=== PATIENT | male | born 1970 ===

== ENCOUNTER 2018-03-24 15:45 | Outpatient (CLI) | payer BC ==
--- NOTE | 2018-03-24 16:33 | RAD ---
RIGHT HIP TWO VIEW 03/24/18 HISTORY: Hip pain. COMPARISON: None. FINDINGS: Severe degenerative changes in the right hip. There is collapse of the superior articular surface of the humeral head. Large osteophytes of the acetabulum with subchondral cyst formation. 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 POS: [facility]
--- NOTE | 2018-03-24 16:34 | RAD ---
LUMBAR SPINE THREE VIEW 03/24/18 HISTORY: Pain. COMPARISON: None. FINDINGS: There is anterolisthesis of L5 over S1 approximately 6 mm. this is felt to due to a pars interarticul caitie defect at this level. Moderate degenerative disc space narrowing at L5-S1. 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 POS: [facility]
== END 2018-03-24 15:46 | disposition home or self-care (01) ==
LOC: RAD-FRANK 15:45
PROVIDERS: ATTEND Nurse Practitioner Family
DX: M54.5 Low back pain (principal); S74.01XS Injury of sciatic nerve at hip and thigh level, right leg, sequela; M43.17 Spondylolisthesis, lumbosacral region; M87.851 Other osteonecrosis, right femur; M16.7 Other unilateral secondary osteoarthritis of hip
CPT/HCPCS: 72100